=== PATIENT | male | born 1990 | race Hispanic/Latino ===

== ENCOUNTER 2022-02-27 16:03 | Emergency (ER) | payer SELFPAY ==
[2022-02-27] MEDS ORDERED: Fluorescein Opthalmic Strip ONE (17:51)
[2022-02-27] MEDS ORDERED: Proparacaine 0.5% Opth 15 ML BOT ONE (17:52)
== END 2022-02-27 18:33 | disposition home or self-care (01) ==
LOC: ERS 16:03
DX: S05.02XA Injury of conjunctiva and corneal abrasion without foreign body, left eye, initial encounter (principal); X58.XXXA Exposure to other specified factors, initial encounter
CPT/HCPCS: 99283

== ENCOUNTER 2022-10-30 23:04 | Emergency (ER) | payer SELFPAY | END 2022-10-30 23:10 | disposition left against medical advice (07) | LOC: ERS 23:04 | DX: Z53.21 Procedure and treatment not carried out due to patient leaving prior to being seen by health care provider (principal) ==